=== PATIENT | female | born 1955 | race Caucasian/White ===

== ENCOUNTER → 2016-08-30 | Outpatient (CLI) | payer OTHER ==
[~2016-08-30] MED LIST: CETI10TA10 PO; ESTR1CRE PV; IBUP-1459 PO; MULT-506 PO; OMEG10007 PO; ZNT/150 PO
--- NOTE | 2016-08-30 12:47 | DIAGNOSTIC IMAGING REPORT ---
C-SPINE ROUTINE 4 OR 5 VIEWS CLINICAL HISTORY: Neck pain. Dizziness. COMPARISON STUDY: No previous studies for comparison. FINDINGS: There is moderate disc space narrowing and osteophytosis at C5-C6. There is mild multilevel facet arthrosis. There is no fracture or suspicious lesion. Prevertebral soft tissues are unremarkable by radiography. IMPRESSION: 1. Moderate degenerative disc disease at C5-C6. 2. No cervical spine fracture. Electronically signed by: Umesh Kyle M.D. 08/30/2016 12:45 PM Dictated Date/Time: 08/30/2016 12:44 PM
[2016-08-30 14:15] LABS: THYROID STIMULATING HORMONE 2.62 uIu/ml (0.300-4.500)
== END | disposition home or self-care (01) ==
LOC: C.RAD 11:56
PROVIDERS: ATTEND Family Medicine
DX: R42 Dizziness and giddiness (principal); R68.89 Other general symptoms and signs; M50.322 Other cervical disc degeneration at C5-C6 level

== ENCOUNTER → 2016-11-24 | Outpatient (CLI) | payer OTHER ==
[2016-11-24 13:54] LABS: BASO % 0.3 %; BASO ABS # 0.03 K/uL (0-0.2); COMPLETE YES; EOS % 0.5 %; IG% 0.3 %; LYMPH % 13.1 %; LYMPH ABS # 1.39 K/uL (1.2-3.4); MEAN CELL VOLUME 90.9 fL (80-100); MEAN CORPUSCULAR HEMOGLOBIN 31.3 pg (25-34); MEAN CORPUSCULAR HGB CONC 34.4 g/dl (32-36); MEAN PLATELET VOLUME 9.7 fL (7.4-10.4); MONO % 3.2 %; NEUT % 82.6 %; PLATELET COUNT 309 K/uL (130-400); RED BLOOD COUNT 4.51 M/uL (4.2-5.4); WHITE BLOOD COUNT 10.65 K/uL (4.8-10.8)
[2016-11-24 14:13] LABS: ALT/SGPT 29 U/L (12-78); AST/SGOT 24 U/L (15-37); BLOOD UREA NITROGEN 23 mg/dl (7-18); BUN/CREATININE RATIO 25.9 (10-20); CALCIUM 9.7 mg/dl (8.5-10.1); CARBON DIOXIDE 26 mmol/L (21-32); CHLORIDE 98 mmol/L (98-107); CREATININE 0.87 mg/dl (0.60-1.20); GLUCOSE 161 mg/dl (70-99); POTASSIUM 4.3 mmol/L (3.5-5.1); SODIUM 131 mmol/L (136-145)
[2016-11-24 14:23] LABS: ALB/GLOB RATIO 1.1 (0.9-2); ALKALINE PHOSPHATASE 72 U/L (45-117)
== END | disposition home or self-care (01) ==
LOC: C.LAB 12:16
PROVIDERS: ATTEND Nurse Practitioner Family
DX: R00.2 Palpitations (principal)

== ENCOUNTER → 2017-02-16 | Outpatient (CLI) | payer OTHER ==
[~2017-02-16] MED LIST changes: +ALUM-30 PO; +PRMVC PV
--- NOTE | 2017-02-16 13:41 | MAMMOGRAPHY REPORT ---
BILATERAL DIGITAL SCREENING MAMMOGRAM TOMOSYNTHESIS WITH CAD: 02/16/2017 CLINICAL HISTORY: Routine screening. Patient has no complaints. TECHNIQUE: Breast tomosynthesis in addition to standard 2D mammography was performed. Current study was also evaluated with a Computer Aided Detection (CAD) system. COMPARISON: Comparison is made to exams dated: 02/12/2016 mammogram, 02/10/2015 mammogram, 4 mammogram, 01/25/2013 mammogram, 01/25/2012 mammogram, and 01/19/2011 mammogram - [facility]. BREAST COMPOSITION: The tissue of both breasts is almost entirely fatty. FINDINGS: The parenchymal pattern is unchanged. No developing mass, architectural distortion or clus ter of suspicious microcalcifications is seen in either breast. IMPRESSION: ACR BI-RADS CATEGORY 2: BENIGN There is no mammographic evidence of malignancy. A 1 year screening mammogram is recommended. The pa tient will receive written notification of the results. Approximately 10% of breast cancers are not detected with mammography. A negative mammographic report should not delay biopsy if a clinically suggestive mass is present. Toshia Rivera M.D. ay/:02/16/2017 12:58:36 Business Continuity Management Director: Lisa CASEY(Concha)(Saniya), [facility] letter sent: Normal 1/2 BI-RADS Code: ACR BI-RADS Category 2: Benign
== END | disposition home or self-care (01) ==
LOC: C.MAMM 09:48
PROVIDERS: ATTEND Obstetrics & Gynecology
DX: Z12.31 Encounter for screening mammogram for malignant neoplasm of breast (principal)

== ENCOUNTER → 2017-10-12 | Day surgery (SDC) | payer OTHER ==
[~2017-10-12] VITALS: Ht 165.1 cm; Wt 56.8 kg
[~2017-10-12] MED LIST changes: -ESTR1CRE PV; +LIDOCAINE HCL 2% 2 ML VIAL (20MG/ML) ONE; +MIDAZOLAM HCL 1 MG/ML 2ML VIAL ONE; +ONDANSETRON INJ 2 MG/ML 2 ML VIAL ONE; +PROPOFOL IV EMULSION 10 MG/ML 20 ML VIAL ONE; +SODIUM CHLORIDE 0.9% 500ML 500 ML IV ONE; -ZNT/150 PO
[2017-10-12 14:11] VITALS: Ht 165.1 cm; Wt 56.8 kg
--- NOTE | 2017-10-12 14:50 | Endo History and Physical ---
History & Physical Date of Service: Oct 12, 2017. Chief Complaint: SCREENING Referring Physician: DR. BENZ History of Present Illness 62 yo CF who presents for screening colonoscopy. Past Surgical History Hx Cardiac Surgery: No Hx Internal Defibrillator: No Hx Pacemaker: No Hx of Implantable Prosthesis: No Hx Post-Op Nausea and Vomiting: No Hx Cancer Surgery: No Hx Thoracic Surgery: No Hx Orthopedic: Yes (RT/LT HAND TRIGGER FINGER RELEASE) Hx Urinary Tract Surgery: No Family History Colon CA Social History Smoking Status: Former Smoker Hx Substance Use: No Hx Alcohol Use: Yes (2-3 GLASSES OF WINE A WEEK) Allergies Coded Allergies: Iodine (Verified Allergy, Intermediate, HIVES, 10/12/17) Penicillins (Verified Allergy, Intermediate, HIVES, 10/12/17) Current Medications Reported Home Medications Medications Dose Route/Sig Max Daily Dose Days Date Category Dose Instructions Mylanta (Alum & Mag Hydrox-Simethicone) 1 Jeri Jeri 1 Dose PO HS 10/04/17 Reported Premarin (Estrogens, Conjugated) 14 Appln/30 Gm Cr 1 Appln PV 2XWK 10/04/17 Reported Zyrtec (Cetirizine Hcl) 10 Mg Tab 10 Mg PO DAILY 06/17/12 Reported Motrin (Ibuprofen) 400 Mg Tab 400 Mg PO PRN 06/17/12 Reported PRN Brandon-3 (Fish Oil) 1 Ea Cap 1 Cap PO DAILY 06/17/12 Reported Multivitamin (Multivitamins) Tab 1 Tab PO DAILY 06/17/12 Reported Vital Signs Weight (Kilograms): 56.82 Height (Feet): 5 Height (Inches): 5 Date Time Temp Pulse Resp B/P (MAP) Pulse Ox O2 Delivery O2 Flow Rate FiO2 10/12/17 14:16 36.9 87 16 158/91 (113) 99 Room Air Physical Exam General Appearance: WD/WN, no apparent distress Respiratory/Chest: Auscultation: breath sounds normal Cardiovascular: Heart Auscultation: RRR Abdomen: Bowel Sounds: normal Inspection & Palpation: soft, non-distended, no tenderness, guarding & rebound Assessment and Plan Assessment: 62 yo CF who presents for screening colonoscopy. Plan: Proceed with colonoscopy.
--- NOTE | 2017-10-12 15:19 | Discharge Instructions ---
Endoscopy Patient Instructions Date / Procedure(s) Performed Oct 12, 2017. Colonoscopy Allergy Information Coded Allergies: Iodine (Verified Allergy, Intermediate, HIVES, 10/12/17) Penicillins (Verified Allergy, Intermediate, HIVES, 10/12/17) Discharge Date / Findings Oct 12, 2017. Diverticulosis Internal hemorrhoids Medication Instructions OK to resume all medications today as prescribed Reported Home Medications Medications Dose Route/Sig Max Daily Dose Days Date Category Dose Instructions Mylanta (Alum & Mag Hydrox-Simethicone) 1 Jeri Jeri 1 Dose PO HS 10/04/17 Reported Premarin (Estrogens, Conjugated) 14 Appln/30 Gm Cr 1 Appln PV 2XWK 10/04/17 Reported Zyrtec (Cetirizine Hcl) 10 Mg Tab 10 Mg PO DAILY 06/17/12 Reported Motrin (Ibuprofen) 400 Mg Tab 400 Mg PO PRN 06/17/12 Reported PRN Boissevain-3 (Fish Oil) 1 Ea Cap 1 Cap PO DAILY 06/17/12 Reported Multivitamin (Multivitamins) Tab 1 Tab PO DAILY 06/17/12 Reported Provider Instructions Activity Restrictions - No exercising or heavy lifting for 24 hours. - Do not drink alcohol the day of the procedure. - Do not drive a car or operate machinery until the day after the procedure. - Do not make any important decisions or sign important papers in 24 hours after the procedure. Following Day: - Return to full activity which may include returning to work/school. Diet Start your diet with liquids and light foods (jello, soup, juice, toast). Then eat your usual diet if not nauseated. Treatment For Common After Affects For mild abdominal pain, bloating, or excessive gas: - Rest - Eat lightly - Lie on right side Follow-Up Information Follow-up with DR. BENZ as scheduled Anesthesia Information What You Should Know You have had a procedure that required some medicine to reduce anxiety and discomfort. This treatment is called moderate sedation. After receiving the treatment, you may be sleepy, but you will be able to breathe on your own. The effects of the treatment may last for several hours. Follow these instructions along with Activity/Diet recommendations noted above: * Do NOT do anything where dizziness or clumsiness would be dangerous. * Rest quietly at home today, then you can be up and about tomorrow. * Have a responsible person stay with you the rest of today. * You may have had an I.V. today. If so, you may take the dressing off later today. Recommendations Call your doctor if: * Trouble breathing * Continuous vomiting for more than 24 hours * Temperature above 101 degrees * Severe abdominal pain or bloating * Pain not relieved by pain medicine ordered * There is increased drainage or redness from any incision * A large amount of rectal bleeding greater than 2-3 tablespoons. (If you had a polyp/s removed or have hemorrhoids, a small amount of blood - from the rectum is to be expected.) * You have any unanswered questions or concerns. IN THE EVENT OF A SERIOUS EMERGENCY, GO TO THE NEAREST EMERGENCY ROOM Your discharge instructions were prepared by provider Tristan Hennessy. Patient Instructions Signature Page Apurva Gross Patient (or Guardian) Signature/Date: I have read and understand the instructions given to me by my caregivers. Caregiver/RN/Doctor Signature/Date: The above-named patient and/or guardian has received patient instructions on this date. + Original Patient Signature Page (only) stays with chart. Please make copy for patient.
--- NOTE | 2017-10-12 15:22 | GI REPORT ---
Patient Name: Apurva Gross Procedure Date: 10/12/2017 2:07 PM Date of : 1955 Admit Type: Outpatient Age: 62 Gender: Female Attending MD: Tristan Hennessy DO Procedure: Colonoscopy Providers: Tristan Hennessy DO Referring MD: Lyndsey Durbin Indications: Screening for colorectal malignant neoplasm Medicines: Monitored Anesthesia Care Complications: No immediate complications. Estimated Blood Loss: Estimated blood loss: none. Procedure: Pre-Anesthesia Assessment: - Prior to the procedure, a History and Physical was performed, and patient medications and allergies were reviewed. The patient's tolerance of previous anesthesia was also reviewed. The risks and benefits of the procedure and the sedation options and risks were discussed with the patient. All questions were answered, and informed consent was obtained. Prior Anticoagulants: The patient has taken no previous anticoagulant or antiplatelet agents. ASA Grade Assessment: II - A patient with mild systemic disease. After reviewing the risks and benefits, the patient was deemed in satisfactory condition to undergo the procedure. After I obtained informed consent, the scope was passed under direct vision. Throughout the procedure, the patient's blood pressure, pulse, and oxygen saturations were monitored continuously. The scope was introduced through the anus and advanced to the terminal ileum. The colonoscopy was performed without difficulty. The patient tolerated the procedure well. The quality of the bowel preparation was good. The terminal ileum, ileocecal valve, appendiceal orifice, and rectum were photographed. Findings: The perianal and digital rectal examinations were normal. Multiple small-mouthed diverticula were found in the sigmoid colon. Non-bleeding internal hemorrhoids were found during retroflexion. The hemorrhoids were small. Impression: - Diverticulosis in the sigmoid colon. - Non-bleeding internal hemorrhoids. - No specimens collected. Recommendation: - Resume previous diet. - Continue present medications. - Repeat colonoscopy in 10 years for surveillance. - Return to primary care physician as previously scheduled. Tristan Hennessy DO 10/12/2017 3:22:27 PM This report has been signed electronically. Note Initiated On: 10/12/2017 2:07 PM Number of Addenda: 0 I attest to the content of the Intraoperative Record and orders documented therein, exceptions below {[id number]}
--- NOTE | 2017-10-12 15:32 | Anesthesiology Progress Note ---
Anesthesia Post Op Note Date & Time Oct 12, 2017 at 15:32 Vital Signs Pain Intensity: 0 Vital Signs Past 12 Hours Date Time Temp Pulse Resp B/P (MAP) Pulse Ox O2 Delivery O2 Flow Rate FiO2 10/12/17 15:19 36.4 77 16 114/67 (83) 99 Room Air 10/12/17 14:16 36.9 87 16 158/91 (113) 99 Room Air Notes Mental Status: alert / awake / arousable, participated in evaluation Pt Amnestic to Procedure: Yes Nausea / Vomiting: adequately controlled Pain: adequately controlled Airway Patency, RR, SpO2: stable & adequate BP & HR: stable & adequate Hydration State: stable & adequate Anesthetic Complications: no major complications apparent
[2017-10-12 15:51] VITALS: BP 138/77; PULSE 70; O2SAT 99
== END | disposition home or self-care (01) ==
LOC: C.GI 13:51
PROVIDERS: ATTEND Internal Medicine
DX: Z12.11 Encounter for screening for malignant neoplasm of colon (principal); K57.30 Diverticulosis of large intestine without perforation or abscess without bleeding; K64.8 Other hemorrhoids; Z88.8 Allergy status to other drugs, medicaments and biological substances; Z88.0 Allergy status to penicillin; Z80.0 Family history of malignant neoplasm of digestive organs; M19.90 Unspecified osteoarthritis, unspecified site